=== PATIENT | female | born 1960 | race Caucasian/White ===

== ENCOUNTER 2018-01-10 10:45 | Emergency (ER) | payer OTHER ==
[~2018-01-10] VITALS: Ht 160 cm; Wt 55.0 kg
[2018-01-10 10:50] VITALS: BP 135/81; PULSE 70; RESP 16; TEMP 97.8; O2SAT 100
[2018-01-10 11:05] VITALS: PULSE 69; RESP 16; O2SAT 100
[2018-01-10] MEDS ORDERED: ALEV220T14 PO (11:05)
--- NOTE | 2018-01-10 11:19 | PD ---
HPI Chief Complaint: Respiratory Symptoms Time Seen by Provider: 11:15 Travel History International Travel<30 days: Yes Contact w/Intl Traveler<30days: Yes Name of Country Traveled to: RETURNED FROM [facility] 01/09/18 Traveled to known affect area: Yes History of Present Illness HPI 58-year-old female patient presents to the ER today for several days history of left-sided chest pains that worsens with deep breaths, has been having some coughing and shortness of breath, started after her flight from [facility] home. She denies any recent fevers. In addition, she states that while she was at [facility] last week, she did fall and hit her head, did not have a loss consciousness, but has been having some dizziness and nausea. She denies other issues or injuries. Modifying Factors: Worse with deep breaths Associated Signs & Symptoms: Left-sided chest pains worse with deep breaths Risk Factors: Recent flight [facility] / [facility] Social History Tobacco Use: No Allergies-Medications (Allergen,Severity, Reaction): Coded Allergies: Tetanus Vaccines and Toxoid (Verified Allergy, Severe, Anaphylaxis, ) Reported Meds & Prescriptions Reported Meds & Active Scripts Active Reported Aleve Arthritis (Naproxen Sodium) 220 Mg Tab 220 Mg PO BID Review of Systems Except as stated in HPI: all other systems reviewed are Neg Physical Exam Narrative GENERAL: Well-developed middle-age female patient currently in mild distress. Awake and oriented 3. SKIN: Warm and dry. HEAD: Atraumatic. Normocephalic. EYES: Pupils equal and round. No scleral icterus. No injection or drainage. ENT: No nasal bleeding or discharge. Mucous membranes pink and moist. NECK: Trachea midline. No JVD. CARDIOVASCULAR: Regular rate and rhythm. RESPIRATORY: No accessory muscle use. Clear to auscultation. Breath sounds equal bilaterally. GASTROINTESTINAL: Abdomen soft, non-tender, nondistended. Hepatic and splenic margins not palpable. MUSCULOSKELETAL: Extremities without clubbing, cyanosis, or edema. No obvious deformities. EXTREMITIES: No clubbing, cyanosis, or edema. No joint tenderness, effusion, or edema noted. No calf tenderness. Bilateral Homans sign negative. NEUROLOGICAL: Awake and alert. No obvious cranial nerve deficits. Motor grossly within normal limits. Five out of 5 muscle strength in the arms and legs. Normal speech. PSYCHIATRIC: Appropriate mood and affect; insight and judgment normal. Data Data Last Documented VS Vital Signs Date Time Temp Pulse Resp B/P (MAP) Pulse Ox O2 Delivery O2 Flow Rate FiO2 01/10/18 12:58 97.7 64 18 130/74 (92) 98 Room Air Orders Orders Complete Blood Count With Diff (01/10/18 11:01) Comprehensive Metabolic Panel (01/10/18 11:01) D-Dimer (01/10/18 11:01) Act Partial Throm Time (Ptt) (01/10/18 11:01) Prothrombin Time / Inr (Pt) (01/10/18 11:01) Ckmb (Isoenzyme) Profile (01/10/18 11:01) Troponin I (01/10/18 11:01) Iv Access Insert/Monitor (01/10/18 11:01) Electrocardiogram (01/10/18 11:01) Ecg Monitoring (01/10/18 11:01) Oximetry (01/10/18 11:01) Oxygen Administration (01/10/18 11:01) Chest, Single Ap (01/10/18 11:01) Ct Brain W/O Iv Contrast(Rout) (01/10/18 11:15) Ct Pulmonary Angiogram (01/10/18 11:58) Iohexol 350 Inj (Omnipaque 350 Inj) (01/10/18 12:12) Acetamin-Hydrocod 325-5 Mg ([place] 5-325 (01/10/18 13:00) Labs Laboratory Tests Test 01/10/18 11:10 White Blood Count 7.9 TH/MM3 Red Blood Count 4.38 MIL/MM3 Hemoglobin 12.2 GM/DL Hematocrit 37.5 % Mean Corpuscular Volume 85.5 FL Mean Corpuscular Hemoglobin 27.7 PG Mean Corpuscular Hemoglobin Concent 32.4 % Red Cell Distribution Width 15.9 % Platelet Count 385 TH/MM3 Mean Platelet Volume 8.6 FL Neutrophils (%) (Auto) 66.0 % Lymphocytes (%) (Auto) 20.5 % Monocytes (%) (Auto) 7.3 % Eosinophils (%) (Auto) 5.5 % Basophils (%) (Auto) 0.7 % Neutrophils # (Auto) 5.2 TH/MM3 Lymphocytes # (Auto) 1.6 TH/MM3 Monocytes # (Auto) 0.6 TH/MM3 Eosinophils # (Auto) 0.4 TH/MM3 Basophils # (Auto) 0.1 TH/MM3 CBC Comment DIFF FINAL Differential Comment Prothrombin Time 10.8 SEC Prothromb Time International Ratio 1.1 RATIO Activated Partial Thromboplast Time 26.9 SEC D-Dimer Quantitative (PE/DVT) 5.85 MG/L FEU Blood Urea Nitrogen 12 MG/DL Creatinine 0.73 MG/DL Random Glucose 129 MG/DL Total Protein 8.3 GM/DL Albumin 3.3 GM/DL Calcium Level 9.3 MG/DL Alkaline Phosphatase 105 U/L Aspartate Amino Transf (AST/SGOT) 13 U/L Alanine Aminotransferase (ALT/SGPT) 17 U/L Total Bilirubin 0.4 MG/DL Sodium Level 139 MEQ/L Potassium Level 4.2 MEQ/L Chloride Level 104 MEQ/L Carbon Dioxide Level 24.5 MEQ/L Anion Gap 11 MEQ/L Estimat Glomerular Filtration Rate 82 ML/MIN Total Creatine Kinase 70 U/L Troponin I LESS THAN 0.02 NG/ML MDM Medical Decision Making Medical Screen Exam Complete: Yes Emergency Medical Condition: Yes Medical Record Reviewed: Yes Interpretation(s) Laboratory Tests Test 01/10/18 11:10 Eosinophils (%) (Auto) 5.5 % (0.0-4.0) D-Dimer Quantitative (PE/DVT) 5.85 MG/L FEU (0.00-0.50) Random Glucose 129 MG/DL (74-106) Total Protein 8.3 GM/DL (6.4-8.2) Albumin 3.3 GM/DL (3.4-5.0) Aspartate Amino Transf (AST/SGOT) 13 U/L (15-37) Estimat Glomerular Filtration Rate 82 ML/MIN (>89) Troponin I LESS THAN 0.02 NG/ML Last [address] Angiography 01/10/18 1158 Signed Impressions: CONCLUSION: 1. There is a minimally displaced left lateral fifth rib fracture that appears acute. Suggest correlating for pain in this location. No pneumothorax is prese nt. 2. No PE is identified. 3. Abnormal bilateral axillary lymphadenopathy along with an enlarged left sup raclavicular lymph node. Etiology is uncertain. Suggest correlating with the cl inical history. Both benign and malignant processes should be considered includ ing metastatic disease and lymphoproliferative disorders. Head CT 01/10/18 1115 Signed Impressions: CONCLUSION: 1. Negative CT Head non contrast. Chest X-Ray 01/10/18 1101 Signed Impressions: CONCLUSION: There is a minimally displaced left lateral fifth rib fracture that appears acu te. A small left apical pneumothorax is present. Differential Diagnosis Pneumonia versus bronchitis versus costochondritis versus ACS versus PE Narrative Course Cardiac enzymes are negative. EKG did not show any signs of acute ST changes or dysrhythmias. On chest x-ray, there was a questionable pneumothorax, her d- dimer was elevated as well, CTA was ordered and shows a left-sided rib fracture. No signs of PE. There is some inflammatory changes seen on CAT scan which will need to be evaluated further with primary care doctor. At this point , patient is provided with a copy of the CT scan to follow-up with primary care doctor with. She was given medications for pain, return for worsening in symptoms as necessary. The plan has been discussed with her and she states understanding. CT the brain did not show any signs of acute intracranial injuries. Diagnosis Primary Impression: Left rib fracture Med/Other Pt SpecificInfo: Prescription(s) given Scripts Ibuprofen (Ibuprofen) 600 Mg Tab 600 MG PO Q6H Y for Pain/Inflammation, #20 TAB 0 Refills Prov: Mohsen Flor MD 01/10/18 Disposition: 01 DISCHARGE HOME Condition: Stable Mohsen Flor MD Jan 10, 2018 11:19
[2018-01-10 11:26] LABS: AUTOMATED NEUTROPHIL # 5.2 TH/MM3 (1.8-7.7); BASOPHIL # 0.1 TH/MM3 (0-0.2); BASOPHIL % 0.7 % (0.0-2.0); EOSINOPHIL # 0.4 TH/MM3 (0-0.4); EOSINOPHIL % 5.5 % (0.0-4.0); HEMATOCRIT 37.5 % (35.0-46.0); HEMOGLOBIN 12.2 GM/DL (11.6-15.3); LYMPH % 20.5 % (9.0-44.0); LYMPHOCYTE # 1.6 TH/MM3 (1.0-4.8); MEAN CELL VOLUME 85.5 FL (80.0-100.0); MEAN CORPUSCULAR HEMOGLOBIN 27.7 PG (27.0-34.0); MEAN CORPUSCULAR HGB CONC 32.4 % (32.0-36.0); MEAN PLATELET VOLUME 8.6 FL (7.0-11.0); MONO % 7.3 % (0.0-8.0); MONOCYTE # 0.6 TH/MM3 (0-0.9); PLATELET COUNT 385 TH/MM3 (150-450); RED BLOOD COUNT 4.38 MIL/MM3 (4.00-5.30); RED CELL DISTRIBUTION WIDTH 15.9 % (11.6-17.2); WHITE BLOOD COUNT 7.9 TH/MM3 (4.0-11.0)
--- NOTE | 2018-01-10 11:41 | RADRPT ---
EXAM DATE: 01/10/2018 11:30 AM EDT AGE/SEX: 58 years / Female INDICATIONS: Short of breath. CLINICAL DATA: This is the patient's initial encounter. Patient reports that signs and symptoms have been present for 1 day and indicates a pain score of 9/10. MEDICAL/SURGICAL HISTORY: None. None. COMPARISON: No prior exams available for comparison. FINDINGS: Portable AP view of the chest demonstrates a normal-sized cardiac silhouette. EKG lines overlie the p atient. Pleural line is visualized the left apex indicating a small pneumothorax. There are no signs of tension. Right lung is clear. No pleural effusion is present. There is a displaced left lateral fi fth rib fracture. CONCLUSION: There is a minimally displaced left lateral fifth rib fracture that appears acute. A small left apica l pneumothorax is present. Electronically signed by: Dada Rodriguez MD 01/10/2018 11:40 AM EDT
[2018-01-10 11:50] LABS: ALBUMIN 3.3 GM/DL (3.4-5.0); AST (GOT) 13 U/L (15-37); BICARBONATE 24.5 MEQ/L (21.0-32.0); BLOOD UREA NITROGEN 12 MG/DL (7-18); CALCIUM 9.3 MG/DL (8.5-10.1); CHLORIDE 104 MEQ/L (98-107); CREATININE 0.73 MG/DL (0.50-1.00); GLOMERULAR FILTRATION RATE 82 ML/MIN (>89); GLUCOSE,RANDOM 129 MG/DL (74-106); INTERNATIONAL NORMALIZED RATIO 1.1 RATIO; PROTHROMBIN TIME - PATIENT 10.8 SEC (9.8-11.6); SODIUM (NA) 139 MEQ/L (136-145)
[2018-01-10 11:51] LABS: ALT (GPT) 17 U/L (10-53)
[2018-01-10 11:52] LABS: D-DIMER 5.85 MG/L FEU (0.00-0.50)
[2018-01-10 11:55] LABS: ALKALINE PHOSPHATASE 105 U/L (45-117); TOTAL BILIRUBIN ADULT 0.4 MG/DL (0.2-1.0); TOTAL PROTEIN 8.3 GM/DL (6.4-8.2); TROPONIN I LESS THAN 0.02 NG/ML (0.02-0.05)
[2018-01-10] MEDS ORDERED: IOHEXOL 350 MG/ML 10 ML VIAL (for RAD DIAG) IVCONTRAST ONE (12:12)
--- NOTE | 2018-01-10 12:17 | RADRPT ---
EXAM DATE: 01/10/2018 12:14 PM EDT AGE/SEX: 58 years / Female INDICATIONS: Dizziness today. CLINICAL DATA: This is the patient's initial encounter. Patient reports that signs and symptoms have been present for 1 day and indicates a pain score of 0/10. MEDICAL/SURGICAL HISTORY: None. None. RADIATION DOSE: 56.35 CTDI (mGy) COMPARISON: No prior exams available for comparison. TECHNIQUE: CT of the head without contrast. Using automated exposure control and adjustment of the mA and/or kV according to patient size, radiation dose was kept as low as reasonably achievable to ob tain optimal diagnostic quality images. FINDINGS: Cerebrum: The ventricles are normal for age. No evidence of midline shift, mass lesion, hemorrhage or acute infarction. No extraaxial fluid collections are seen. Posterior Fossa: The cerebellum and brainstem are intact. The 4th ventricle is midline. The cerebe llopontine angle is unremarkable. Extracranial: The visualized portion of the orbits is intact. Skull: The calvaria is intact. No evidence of skull fracture. CONCLUSION: 1. Negative CT Head non contrast. Electronically signed by: Harrison Avila MD 01/10/2018 12:16 PM EDT
--- NOTE | 2018-01-10 12:38 | RADRPT ---
EXAM DATE: 01/10/2018 12:29 PM EDT AGE/SEX: 58 years / Female INDICATIONS: Left sided chest pain today. CLINICAL DATA: This is the patient's initial encounter. Patient reports that signs and symptoms have been present for 1 day and indicates a pain score of 7/10. MEDICAL/SURGICAL HISTORY: None. None. RADIATION DOSE: 5.31 CTDI (mGy) COMPARISON: No prior exams available for comparison. TECHNIQUE: Volumetric scanning was performed using a multi-row detector CT scanner during bolus infu jessi of 70 ml Omnipaque 350 (iohexol) nonionic water-soluble contrast as a single exam dose. The ina a was post processed with a variety of visualization algorithms including full volume maximum intensi ty projection and sliding thin slab reformation. Using automated exposure control and adjustment of the mA and/or kV according to patient size, radiation dose was kept as low as reasonably achievable t o obtain optimal diagnostic quality images. FINDINGS: Pulmonary Arteries: No filling defect is identified through the segmental and some of the subsegmenta l level pulmonary arteries. Lungs: No consolidation or pneumothorax is identified. There is mild dependent atelectasis bilateral ly. Mediastinum: The heart and great vessels demonstrate no acute abnormality. No lymphadenopathy is vis ualized. Coronary artery calcification is present. Pleurae: No pleural effusion or pleural thickening. Axillae: There is bilateral axillary lymphadenopathy with the largest in the right axilla having a s hort axis diameter of 11 mm. In the left axilla the largest measures 1.4 cm in short axis diameter. Musculoskeletal: There is a minimally displaced left lateral fifth rib fracture. There are mild dege nerative changes of the thoracic spine. Other: Visualized upper abdominal structures demonstrate no acute abnormality. There is an enlarged left supraclavicular lymph node measuring 10 mm in short axis diameter. CONCLUSION: 1. There is a minimally displaced left lateral fifth rib fracture that appears acute. Suggest correl ating for pain in this location. No pneumothorax is present. 2. No PE is identified. 3. Abnormal bilateral axillary lymphadenopathy along with an enlarged left supraclavicular lymph nod e. Etiology is uncertain. Suggest correlating with the clinical history. Both benign and malignant pr ocesses should be considered including metastatic disease and lymphoproliferative disorders. Electronically signed by: Dada Rodriguez MD 01/10/2018 12:37 PM EDT
[2018-01-10 12:58] VITALS: BP 130/74; PULSE 64; RESP 18; TEMP 97.7; O2SAT 98
[2018-01-10] MEDS ORDERED: ACETAMINOPHEN/HYDROcodone 325 MG/5 MG TAB PO ONE (13:00)
[2018-01-10] MEDS ORDERED: IBUP-232 PO (14:09)
[2018-01-10 14:30] VITALS: BP 124/81; TEMP 97.9
--- NOTE | 2018-01-11 23:18 | EKG ---
Date Performed: 01/10/2018 Time Performed: 11:09:32 PTAGE: 58 years EKG: Sinus rhythm NORMAL ECG NO PREVIOUS TRACING DOCTOR: Carlos Felix Interpretating Date/Time 01/11/2018 23:05:12
== END 2018-01-10 14:30 | disposition home or self-care (01) ==
LOC: NEPE 10:45
DX: S22.32XA Fracture of one rib, left side, initial encounter for closed fracture (principal); X58.XXXA Exposure to other specified factors, initial encounter; R05 Cough; R06.02 Shortness of breath; R07.9 Chest pain, unspecified
CPT/HCPCS: 70450; 71045; 71275; 80053; 82550; 84484; 85025; 85379; 85610; 85730; 93005; 99285; Q9967